=== PATIENT | male | born 1940 | race Caucasian/White ===

== ENCOUNTER 2016-07-17 10:23 | Emergency (ER) | payer MEDICARE, BC ==
[2016-07-17] MEDS ORDERED: Dextrose 5%-0.45% NaCl 500 ML IV SCH (11:00)
[2016-07-17] MEDS ORDERED: Ondansetron 4 MG Tab.DIS ONE (11:08)
[2016-07-17 11:13] VITALS: BP 137/66
--- NOTE | 2016-07-17 11:50 | EDM.PDOC ---
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 Patient states he recalls the episode but his friend states there was 5-10 seconds where it appeared he was unconscious and breathing funny. Patient denies any chest pain, no sob, no abdominal pain, no back pain, but does have some feeling of light- headedness. Patient was able to get up and in the truck with his friend to come into town. He had orange juice and a candy bar 30 min prior to meeting the ambulance and states he was feeling much better at that time. EMS obtained a BS reading of 130's 1/2 hr after the orange juice and candy bar. Patient's BS was repeated on arrival in the ER and was 136. He was feeling fine at this point. Onset: sudden Duration: Minutes:, Resolved prior to arrival Location: Reports: generalized Severity: mild Improves with: Reports: Eating Worsens with: Reports: None Associated Symptoms: Reports: syncope - Related Data Allergies Allergy/AdvReac Type Severity Reaction Status Date / Time aspirin Allergy Anaphylactic Verified 07/17/16 10:44 Shock naproxen [From Aleve] Allergy Anaphylactic Verified 07/17/16 10:44 Shock ED ROS GENERAL - Review of Systems Review Of Systems: ROS reveals no pertinent complaints other than HPI. ED EXAM, GENERAL - Physical Exam Exam: See Below Exam Limited By: No limitations General Appearance: alert, WD/WN, no apparent distress Eye Exam: bilateral eye: EOMI, PERRL Ears: normal external exam Nose: normal inspection Throat/Mouth: Normal inspection, Normal lips, Normal teeth Head: atraumatic, normocephalic Neck: normal inspection, supple, non-tender Respiratory/Chest: no respiratory distress, lungs clear, normal breath sounds, no accessory muscle use, chest non-tender Cardiovascular: normal peripheral pulses, regular rate, rhythm, no edema, no gallop, no JVD, no rub, systolic murmur Peripheral Pulses: 2+: dorsalis pedis (L), dorsalis pedis (R) GI/Abdominal: normal bowel sounds, soft, non tender, no organomegaly, no distention, no abnormal bruit, no mass Back Exam: normal inspection, full range of motion Extremities: normal inspection, normal range of motion, non-tender, no pedal edema, normal capillary refill Neurological: alert, oriented, CN II-XII intact, normal cognition, normal gait, normal reflexes, no motor/sensory deficits Psychiatric: normal affect, normal mood Skin Exam: Warm, Dry, Intact, Normal color, No rash Lymphatic: no adenopathy Course - Vital Signs Last Recorded V/S: Last Vital Signs Temp 36.4 C 07/17/16 11:12 Pulse 56 L 07/17/16 11:12 Resp 12 07/17/16 11:12 BP 137/66 07/17/16 11:12 Pulse Ox 98 07/17/16 11:12 - Orders/Labs/Meds Orders: Active Orders 24 hr Category Date Time Status EKG Documentation Completion [RC] ASDIRECTED Care 07/17/16 10:26 Active Chest 1V Frontal [CR] Stat Exams 07/17/16 10:40 Taken Dextrose 5%-0.45% NaCl [Dextrose 5%-1/2 NS] 500 ml Med 07/17/16 11:00 Active IV ASDIRECTED Medication Orders Dextrose/Sodium Chloride (Dextrose 5%-1/2 Ns) 500 mls @ 999 mls/hr IV ASDIRECTED BLAS Labs: Laboratory Tests 07/17/16 07/17/16 07/17/16 Range/Units 09:30 10:50 10:50 WBC 8.8 (4.0-11.0) K/uL RBC 4.93 (4.50-6.50) M/uL Hgb 14.4 (13.0-18.0) g/dL Hct 41.1 (40.0-54.0) % MCV 83 (76-96) fL MCH 29.2 (27.0-32.0) pg MCHC 35.0 (31.0-35.0) g/dL RDW 13.6 (11.0-16.0) % Plt Count 233 (150-400) K/uL MPV 9.4 (6.0-10.0) fL Neut % (Auto) 79.5 H (45.0-70.0) % Lymph % (Auto) 12.7 L (20.0-40.0) % Hand % (Auto) 6.6 (3.0-10.0) % Eos % (Auto) 1.0 (1.0-5.0) % Baso % (Auto) 0.2 (0.0-0.5) % Neut # 7.00 (2.00-7.50) K/uL Lymph # 1.12 L (1.50-4.00) K/uL Hand # 0.58 (0.20-0.80) K/uL Eos # 0.09 (0.04-0.40) K/uL Baso # 0.02 (0.02-0.10) K/uL Sodium 142 (136-145) mmol/L Potassium 3.4 L (3.5-5.1) mmol/L Chloride 101 (98-107) mmol/L Carbon Dioxide 30.1 (21.0-32.0) mmol/L Anion Gap 14.3 (5.0-15.0) mmol/L BUN 21 (8-26) mg/dL Creatinine 1.28 (0.70-1.30) mg/dL Est Cr Clr Drug Dosing TNP Estimated GFR (MDRD) 55 L (>60) MLS/MIN BUN/Creatinine Ratio 16.4 (6-25) Glucose 129 H (74-100) mg/dL POC Glucose 136 H (74-110) mg/dL Calcium 8.1 L (8.5-10.1) mg/dL Total Bilirubin 1.2 H (0.0-1.0) mg/dL AST 20 (15-37) U/L ALT 26 (12-78) U/L Alkaline Phosphatase 91 (46-116) U/L Troponin I < 0.017 (0.000-0.060) ng/mL Total Protein 6.6 (6.4-8.2) g/dL Albumin 3.7 (3.4-5.0) g/dL Globulin 2.9 (2.2-4.2) g/dL Albumin/Globulin Ratio 1.3 (0.8-2.0) TSH, Ultra Sensitive 2.672 (0.358-3.740) uIU/mL Meds: Medications Generic Name Dose Route Start Last Admin Trade Name Freq PRN Reason Stop Dose Admin Dextrose/Sodium Chloride 500 mls @ 999 mls/hr 07/17/16 11:00 Dextrose 5%-1/2 Ns IV ASDIRECTED BLAS Discontinued Medications Generic Name Dose Route Start Last Admin Trade Name Trent PRN Reason Stop Dose Admin Ondansetron HCl Confirm 07/17/16 11:08 Zofran Odt Administered 07/17/16 11:09 Dose 4 mg .ROUTE .STK-MED ONE - Re-Assessments/Exams Free Text/Narrative Re-Assessment/Exam: Patient stated he felt a little woozy while getting up for the x-ray but resolved as soon as he laid down again. Free Text/Narrative Re-Assessment/Exam: Pulse improved from 60's to 70's after bolus of D5 1/2NS 500mL. Patient states he feels much better after bolus. Departure - Departure Time of Disposition: 12:00 Disposition: Home, Self-Care 01 Condition: good Clinical Impression: Syncope due to orthostatic hypotension, Hypoglycemia Instructions: Tamsulosin capsules Referrals: PCP,None [Primary Care Provider] - Forms: ED Department Discharge Additional Instructions: Follow up with primary care provider. Discontinue taking flomax until follow up visit. - Problem List Review Problem List Initiated/Reviewed/Updated: Yes - My Orders Last 24 Hours: My Active Orders 07/17/16 10:26 EKG Documentation Completion [RC] ASDIRECTED 07/17/16 10:40 Chest 1V Frontal [CR] Stat 07/17/16 11:00 Dextrose 5%-0.45% NaCl [Dextrose 5%-1/2 NS] 500 ml IV ASDIRECTED - Assessment/Plan Last 24 Hours: My Active Orders 07/17/16 10:26 EKG Documentation Completion [RC] ASDIRECTED 07/17/16 10:40 Chest 1V Frontal [CR] Stat 07/17/16 11:00 Dextrose 5%-0.45% NaCl [Dextrose 5%-1/2 NS] 500 ml IV ASDIRECTED Plan: Counseled on possible hypoglycemic event, possible orthostatic hypotension, and possible flomax side effects. Patient agrees with f/u with PCP immediately when he gets home for re-evaluation. Patient to return to ER if any further symptoms. Counseled on hydration, food intake, flomax cessation until cleared by PCP and BP checks. Patient agrees with plan of care and f/u.
--- NOTE | 2016-07-18 20:10 | CR ---
DATE OF SERVICE: 07/17/2016 CLINICAL DATA: Syncope. AP PORTABLE CHEST No priors. The heart size is normal. There is calcification of the aortic arch. The lungs are clear. No pneumothorax. No pleural effusions. No areas of consolidation. IMPRESSION: No evidence of acute intrathoracic disease. [id number] MTDD
== END 2016-07-17 12:00 | disposition home or self-care (01) ==
LOC: LB.ED 10:23
DX: I95.1 Orthostatic hypotension (principal); E11.649 Type 2 diabetes mellitus with hypoglycemia without coma; Z88.6 Allergy status to analgesic agent; Z88.8 Allergy status to other drugs, medicaments and biological substances
CPT/HCPCS: 36415; 71010; 80053; 82962; 84443; 84484; 85025; 93005; 99283; 99285; A0425; A0429; A9270